=== PATIENT | male | born 1995 | race Caucasian/White ===

== ENCOUNTER 2022-01-15 22:29 | Emergency (ER) | payer OTHER ==
[2022-01-15] MEDS ORDERED: DIPH,PERTUS(ACELL)TETVAC-LF 0.5 ML VIAL IM ONE (22:52)
[2022-01-15] MEDS ORDERED: LIDOCAINE 1% INJ 10MG/ML (5 ML VIAL-PF) SQ ONE (22:52)
--- NOTE | 2022-01-15 22:57 | ED ---
Wound/Laceration HPI - General Chief Complaint: Wound/Laceration Stated Complaint: work injury-sliced right thumb Time Seen by Provider: 01/15/22 22:38 Source: patient, RN notes reviewed Mode of arrival: ambulatory Limitations: no limitations - History of Present Illness Initial Comments: This is a 26-year-old male who presents to the emergency department for a laceration of the right thumb. 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 He is unsure when his last tetanus vaccine was. Denies any fevers, chills, sore throat, cough, dyspnea, chest pain, palpitations, abdominal pain, nausea, vomiting, diarrhea, back pain, or headaches. Extremity Location: Right: Hand Place: work Patient Tetanus UTD: No Context: accidental Treatments Prior to Arrival: bandage - Related Data Allergies Allergy/AdvReac Type Severity Reaction Status Date / Time acetaminophen [From Tylenol] Allergy Rash/Hives Verified 01/15/22 22:34 Review of Systems ROS Statement: Those systems with pertinent positive or pertinent negative responses have been documented in the HPI. ROS Other: All systems not noted in ROS Statement are negative. Past Medical History Past Medical History: No Reported History History of Any Multi-Drug Resistant Organisms: None Reported Past Surgical History: No Surgical Hx Reported Past Psychological History: No Psychological Hx Reported Smoking Status: Never smoker Past Alcohol Use History: None Reported Past Drug Use History: None Reported General Exam Limitations: no limitations General appearance: alert, in no apparent distress Head exam: Present: atraumatic, normocephalic, normal inspection Respiratory exam: Present: normal lung sounds bilaterally. Absent: respiratory distress, wheezes, rales, rhonchi, stridor Cardiovascular Exam: Present: regular rate, normal rhythm, normal heart sounds. Absent: systolic murmur, diastolic murmur, rubs, gallop, clicks Neurological exam: Present: alert, oriented X3, CN II-XII intact Psychiatric exam: Present: normal affect, normal mood Skin exam: Present: other (2 cm horizontal laceration over the DIP joint of the dorsal aspect of the right thumb.) Course Vital Signs 01/15/22 01/16/22 22:30 00:16 Temperature 97.9 F 98 F Pulse Rate 91 95 Respiratory 20 18 Rate Blood Pressure 138/88 146/88 O2 Sat by Pulse 99 98 Oximetry Procedures - Laceration Laceration #1 Consent Obtained: verbal consent Indication: laceration Site: hand (right thumb) Size (cm): 2 Description: linear Depth: simple, single layer Anesthetic Used: lidocaine 1% Anesthesia Technique: local infiltration Amount (mls): 1 Type of Sutures: nylon Size of Sutures: 5-0 Number of Sutures: 2 Technique: simple, interrupted Medical Decision Making - Medical Decision Making This is a 26-year-old male who presents to the emergency department for a laceration to the right thumb. This was repaired with 2 sutures and his tetanus status was updated. IHS requirements were fulfilled and the paperwork was filled out appropriately. Instructed the patient to return in 7-10 days for suture removal. He can take ibuprofen as needed for pain relief. Instructed him to wear gloves and protection over the wound to at work to avoid any contamination or additional irritation. Return precautions reviewed in depth, the patient is instructed to return to the emergency department with any new, worsening, or concerning symptoms. Patient verbalized understanding. This case was discussed in detail with the attending ED physician. Presentation, findings, and treatment plan discussed in detail as well. Disposition Clinical Impression: Laceration Disposition: HOME SELF-CARE Instructions (If sedation given, give patient instructions): Care For Your Stitches (ED) Additional Instructions: Return to the emergency department with any new, worsening, or concerning symptoms and in 7-10 days for suture removal. Take Ibuprofen as needed for pain. Is patient prescribed a controlled substance at d/c from ED?: No Referrals: Seth Anthony MD [Primary Care Provider] - 1-2 days
[2022-01-16 00:17] VITALS: BP 146/88; PULSE 95; RESP 18; TEMP 98
== END 2022-01-16 00:16 | disposition home or self-care (01) ==
LOC: EC 22:29
DX: S61.011A Laceration without foreign body of right thumb without damage to nail, initial encounter (principal); Z23 Encounter for immunization; Z88.6 Allergy status to analgesic agent; W26.8XXA Contact with other sharp object(s), not elsewhere classified, initial encounter; Y93.H9 Activity, other involving exterior property and land maintenance, building and construction
CPT/HCPCS: 90715; 99282; 90471; 12001; J2001